=== PATIENT | female | born 1970 | race American Indian/Alaskan Native ===

== ENCOUNTER 2017-05-16 19:41 | Inpatient (IN) | payer SELFPAY ==
[2017-05-16] MEDS ORDERED: ASPIRIN PO ONE (20:01)
[2017-05-16 20:37] LABS: Basophils # (Auto) 0.1 K/mm3 (0.0-0.1); Basophils % (Auto) 0.9 % (0.0-1.8); Eosinophils # (Auto) 0.1 K/mm3 (0.0-0.4); Eosinophils % (Auto) 2.2 % (0.0-4.3); Hematocrit 43.5 % (30.3-42.9); Hemoglobin 13.9 gm/dl (10.1-14.3); Lymphocytes # (Auto) 2.8 K/mm3 (1.2-5.4); Lymphocytes % (Auto) 47.1 % (13.4-35.0); Mean Corpuscular HGB Conc 32 % (30-34); Mean Corpuscular Hemoglobin 28 pg (28-32); Mean Corpuscular Volume 88 fl (79-97); Monocytes # (Auto) 0.4 K/mm3 (0.0-0.8); Platelet Count 306 K/mm3 (140-440); Red Blood Count 4.97 M/mm3 (3.65-5.03); Red Cell Distribution Width 15.3 % (13.2-15.2)
[2017-05-16 20:53] LABS: BUN/Creatinine Ratio 10; Blood Urea Nitrogen 6 mg/dL (7-17); Hemolysis Index 5
[2017-05-16] MEDS ORDERED: NITROSTAT SL ONE (23:50)
--- NOTE | 2017-05-16 23:50 | Emergency Department Report ---
ED Chest Pain HPI - General Chief Complaint: Chest Pain Stated Complaint: CHEST PAIN Time Seen by Provider: 05/16/17 23:41 Source: patient Mode of arrival: Ambulatory Limitations: No Limitations - History of Present Illness Initial Comments: Patient is 46 years old female history of hypertension, HIV, coronary artery disease. Patient stated that she had coronary stents in 2015 at [facility]. Patient presented with left sided chest pain started this evening. Patient described her pain as squeezing radiated to the left arm. Patient stated also she was dealing with cough and upper respiratory infection for the last 2 weeks. MD Complaint: chest pain -: Sudden, This evening Pain Location: left chest Pain Radiation: LUE Quality: squeezing - Related Data Previous Rx's Medication Instructions Recorded Last Taken Type Atenolol [Tenormin] 50 mg PO DAILY #60 tab 12/07/15 Unknown Rx Clindamycin [Clindamycin CAP] 300 mg PO Q8H #14 cap 12/07/15 Unknown Rx Hydrochlorothiazide [HCTZ] 25 mg PO QDAY #30 tablet 12/13/15 Unknown Rx Allergies Allergy/AdvReac Type Severity Reaction Status Date / Time No Known Allergies Allergy Verified 12/07/15 13:32 Heart Score - HEART Score History: Moderately suspicious EKG: Non-specific Age: 45-65 Risk factors: > 3 risk factors or hx of atherosclerotic disease Troponin: < normal limit HEART Score: 5 - Critical Actions Critical Actions: 4-6 pts:12-16.6% risk of adverse cardiac event. Should be admitted ED Review of Systems ROS: Stated complaint: CHEST PAIN Other details as noted in HPI Comment: All other systems reviewed and negative Constitutional: denies: chills, fever Respiratory: cough. denies: orthopnea, shortness of breath, SOB with exertion, wheezing Cardiovascular: chest pain. denies: palpitations, dyspnea on exertion Gastrointestinal: denies: abdominal pain, nausea, vomiting, diarrhea, constipation, hematemesis Neurological: denies: headache, weakness, numbness, paresthesias ED Past Medical Hx - Past Medical History Hx Hypertension: Yes Additional medical history: HIV+,pad - Surgical History Additional Surgical History: . CARDIAC STENT 03/2016 - Social History Smoking Status: Unknown if ever smoked Substance Use Type: None - Medications Home Medications: Home Medications Medication Instructions Recorded Confirmed Last Taken Type Atenolol [Tenormin] 50 mg PO DAILY #60 tab 12/07/15 Unknown Rx Clindamycin [Clindamycin CAP] 300 mg PO Q8H #14 cap 12/07/15 Unknown Rx Hydrochlorothiazide [HCTZ] 25 mg PO QDAY #30 tablet 12/13/15 Unknown Rx ED Physical Exam - General Limitations: No Limitations General appearance: alert, in no apparent distress - Head Head exam: Present: atraumatic, normocephalic, normal inspection - Eye Eye exam: Present: normal appearance, PERRL - ENT ENT exam: Present: normal exam, normal orophraynx, mucous membranes moist - Respiratory Respiratory exam: Present: normal lung sounds bilaterally. Absent: respiratory distress, wheezes, rales, rhonchi, stridor, chest wall tenderness, accessory muscle use, decreased breath sounds, prolonged expiratory - Cardiovascular Cardiovascular Exam: Present: regular rate, normal rhythm, normal heart sounds - GI/Abdominal GI/Abdominal exam: Present: soft, normal bowel sounds. Absent: distended, tenderness, guarding, rebound, rigid, organomegaly, mass, bruit, pulsatile mass - Extremities Exam Extremities exam: Present: normal inspection, full ROM, normal capillary refill. Absent: tenderness, pedal edema, joint swelling, calf tenderness - Back Exam Back exam: Present: normal inspection, full ROM. Absent: tenderness, CVA tenderness (R), CVA tenderness (L), muscle spasm, paraspinal tenderness, vertebral tenderness - Neurological Exam Neurological exam: Present: alert, oriented X3, CN II-XII intact, normal gait - Skin Skin exam: Present: warm, intact, normal color. Absent: cyanosis ED Course Vital Signs 05/16/17 05/16/17 05/16/17 19:53 23:16 23:58 Temperature 98.3 F 98.8 F Pulse Rate 84 77 74 Respiratory 18 21 Rate Blood Pressure 226/111 206/93 Blood Pressure 199/104 [Left] O2 Sat by Pulse 100 98 Oximetry ED Medical Decision Making - Lab Data Result diagrams: 05/16/17 20:00 05/16/17 20:00 - EKG Data -: EKG Interpreted by Pr EKG shows normal: sinus rhythm Rate: normal - EKG Data Interpretation: no acute changes - Radiology Data Radiology results: report reviewed Referring Physician: ANDREINA ALMEIDA Patient Name: MICHELINE GEE Date of : 1970 Sex: Female Report Date: 2017-05-16 Report Status: Finalized Findings [facility] [address] [place] [address] XRay Report Signed Patient: MICHELINE GEE MR#: [id number] : 1970 Acct:[id number] Age/Sex: 46 / F ADM Date: 05/16/17 Loc: ED Attending Dr: Ordering Physician: ANDREINA ALMEIDA Date of Service: 05/16/17 Procedure(s): XR chest 1V ap Accession Number(s): [id number] cc: ANDREINA ALMEIDA Fluoro Time In Minutes: FINAL REPORT EXAM: XR CHEST 1V AP HISTORY: chest pain TECHNIQUE: A portable upright view of the chest was obtained. FINDINGS: The heart size and mediastinum appear normal. The lungs are clear. Pleural fluid is not seen. There are EKG leads overlying the chest wall. The bones and soft tissues do not show any acute changes. IMPRESSION: No active chest disease. Transcribed By: RB Dictated By: ALISON OSUNA MD Electronically Authenticated By: ALISON OSUNA MD Signed Date/Time: 05/16/172020 DD/ 20 TD/TT: 05/16/172020 - Medical Decision Making Discussed with Dr. Christy Groves, I presented the patient to her, she agreed to admit the patient to her service. Critical care attestation.: If time is entered above; I have spent that time in minutes in the direct care of this critically ill patient, excluding procedure time. ED Disposition Clinical Impression: Chest pain Disposition: -09 OP ADMIT IP TO THIS HOSP Is pt being admited?: Yes Condition: Stable Instructions: Chest Pain (ED)
--- NOTE | 2017-05-17 00:24 | XRay Report ---
FINAL REPORT EXAM: XR CHEST 1V AP HISTORY: chest pain TECHNIQUE: A portable upright view of the chest was obtained. FINDINGS: The heart size and mediastinum appear normal. The lungs are clear. Pleural fluid is not seen. There are EKG leads overlying the chest wall. The bones and soft tissues do not show any acute changes. IMPRESSION: No active chest disease.
[2017-05-17] MEDS ORDERED: DULCOLAX PR PRN (02:04)
[2017-05-17] MEDS ORDERED: MORPHINE IV PRN ×2 (02:04→03:20)
[2017-05-17] MEDS ORDERED: MILK OF MAGNESIA PO PRN (02:04)
[2017-05-17] MEDS ORDERED: TYLENOL PO PRN (02:04)
[2017-05-17] MEDS ORDERED: ZOFRAN IV PRN (02:04)
[2017-05-17 02:09] LABS: Bilirubin,Urine NEG (Negative); Blood,Urine MOD (Negative); Color,Urine Yellow (Yellow); Mucus,Urine FEW /HPF; Nitrite,Urine NEG (Negative); Protein,Urine <15 mg/dL mg/dL (Negative); WBC,Urine < 1.0 /HPF (0.0-6.0)
[2017-05-17] MEDS ORDERED: APRESOLINE IV ONE (02:26)
--- NOTE | 2017-05-17 03:20 | History and Physical Report ---
History of Present Illness Date of examination: 05/17/17 Date of admission: 05/17/17 02:04 History of present illness: 46-year-old woman with a history of HIV, unknown CD4 count, peripheral vascular disease, hypertension, coronary artery disease can't emergency room with complaints of chest pain that started yesterday. She describes the pain as sharp, intermittent in nature, lasting less than 5 minutes, intensity 5/10, radiating to the back and she can't identify exacerbating factors, relieved with pain medication given in the emergency room. A medicine nausea, no vomiting, shortness pain, diaphoresis or palpitation. Her stent was placed in 2016, she has not had any stress test after Review Of Systems: Constitutional: no weight loss Ears, eyes, nose, mouth and throat: no nasal congestion, no nasal discharge, no sinus pressure, blurry vision, diplopia Neck: No neck pain or rigidity. Cardiovascular: + chest pain, NO palpitations Respiratory: No shortness of breath, cough Gastrointestinal: No abdominal pain, hematochezia Genitourinary : no dysuria, frequency , hematuria Musculoskeletal: no muscle ache Integumentary: no rash, no pruritis Neurological: no parathesias, focal weakness Endocrine: no cold or heat intolerance, no polyuria or polydipsia Hematologic/Lymphatic: no easy bruising, no easy bleeding, no gland swelling Allergic/Immunologic: no urticaria, no angioedema. PAST MEDICAL HISTORY:HIV, unknown CD4 count, peripheral vascular disease, hypertension, coronary artery disease PAST SURGICAL HISTORY: None FAMILY HISTORY: Hypertension, diabetes SOCIAL HISTORY: Smokes half pack a day, no alcohol or drugs Medications and Allergies Allergies Allergy/AdvReac Type Severity Reaction Status Date / Time No Known Allergies Allergy Verified 12/07/15 13:32 Home Medications Medication Instructions Recorded Confirmed Last Taken Type Aspirin [Aspirin BABY CHEW TAB] 81 mg PO QDAY #30 tab.chew 05/18/17 Unknown Rx Atenolol [Tenormin] 50 mg PO DAILY #60 tab 05/18/17 Unknown Rx AtorvaSTATin [Lipitor] 40 mg PO QHS #30 tablet 05/18/17 Unknown Rx Clopidogrel [Plavix] 75 mg PO QDAY #30 tablet 05/18/17 Unknown Rx HYDROcodone/APAP 5-325 [[place] 1 each PO Q6HR PRN #12 tablet 05/18/17 Unknown Rx 5/325] amLODIPine [Norvasc] 10 mg PO QDAY #30 tablet 05/18/17 Unknown Rx Active Meds: Active Medications Acetaminophen (Tylenol) 650 mg PO Q4H PRN PRN Reason: Pain MILD(1-3)/Fever >100.5/BASS Bisacodyl (Dulcolax) 10 mg [place] QDAY PRN PRN Reason: Constipation unrelieved by MOM Enoxaparin Sodium (Lovenox) 40 mg SUB-Q QDAY SAGE Magnesium Hydroxide (Milk Of Magnesia) 30 ml PO Q4H PRN PRN Reason: Constipation Morphine Sulfate (Morphine) 2 mg IV Q4H PRN PRN Reason: Pain, Moderate (4-6) Ondansetron HCl (Zofran) 4 mg IV Q8H PRN PRN Reason: N/V unrelieved by Reglan Exam - Physical Exam Narrative exam: Gen. appearance: Patient lying in bed in no acute distress HEENT: Normocephalic/atraumatic, pupils equal round reactive to light, extra occular movement intact, no scleral icterus, no JVD or thyromegaly or nodule, neck is supple, mucous membrane moist, no erythema or exudate Heart: S1-S2, regular rate and rhythm Lungs: Clear to auscultation bilateral breathing comfortable Abdomen: Positive bowel sounds, nontender, nondistended, no organomegaly Extremities: No edema, cyanosis, clubbing Neuro:: Oriented 3 , cranial nerves II-12 intact, speech, motor intact Skin: No rash, nodules, warm dry - Constitutional Vitals: Temp Pulse Resp BP Pulse Ox 98.8 F 74 17 177/91 97 05/16/17 23:16 05/17/17 02:27 05/17/17 02:00 05/17/17 02:27 05/17/17 02:00 Results - Labs CBC & Chem 7: 05/18/17 06:45 05/18/17 06:45 Labs: Abnormal lab results 05/16/17 05/16/17 Range/Units 20:00 20:00 Hct 43.5 H (30.3-42.9) % RDW 15.3 H (13.2-15.2) % Lymph % (Auto) 47.1 H (13.4-35.0) % BUN 6 L (7-17) mg/dL Creatinine 0.6 L (0.7-1.2) mg/dL Glucose 155 H (65-100) mg/dL - Imaging and Cardiology EKG: image reviewed Chest x-ray: image reviewed Assessment and Plan Assessment Unstable angina Coronary artery disease Hypertension HIV Peripheral vascular disease Plan Admit to medicine Check cardiac enzymes, stress test Continue appropriate outpatient medications Start aspirin, IV morphine, continue cardiac medication DVT prophylaxis
[2017-05-17 03:24] LABS: Creatine Kinase MB 1.5 ng/mL (0.0-4.0)
[2017-05-17] MEDS ORDERED: TENORMIN PO SCH (10:00)
[2017-05-17] MEDS ORDERED: LEXISCAN IV ONE (10:28)
[2017-05-17] MEDS ORDERED: TENORMIN ONE (11:25)
[2017-05-17] MEDS: BABY ASPIRIN PO SCH (11:31)
[2017-05-17] MEDS: LOVENOX SUB-Q SCH (11:31)
[2017-05-17 12:16] LABS: Creatine Kinase MB 1.6 ng/mL (0.0-4.0)
--- NOTE | 2017-05-17 14:35 | Consultation ---
History of Present Illness Consult date: 05/17/17 Consult reason: chest pain History of present illness: 46 year old female presenting with retrosternal chest pain lasting 2-3 min in duration and relieved with SL NTG. Patient has a history of CAD s/p PCI Mar 2016 at [facility]. Records are not available. Stress test today revealing reversal of the septal to lateral intensity ratio on stress imaging when compared to rest raising suspicion for Cx ischemia Past History Past Medical History: CAD, hypertension Past Surgical History: PTCA Social history: no significant social history Family history: no significant family history Medications and Allergies Allergies Allergy/AdvReac Type Severity Reaction Status Date / Time No Known Allergies Allergy Verified 12/07/15 13:32 Home Medications Medication Instructions Recorded Confirmed Last Taken Type Atenolol [Tenormin] 50 mg PO DAILY #60 tab 12/07/15 05/17/17 Unknown Rx Aspirin [Aspirin BABY CHEW TAB] 81 mg PO QDAY 05/17/17 05/17/17 Unknown History Active Meds: Active Medications Acetaminophen (Tylenol) 650 mg PO Q4H PRN PRN Reason: Pain MILD(1-3)/Fever >100.5/BASS Aspirin (Baby Aspirin) 81 mg PO QDAY [facility] Last Admin: 05/17/17 11:31 Dose: 81 mg Atenolol (Tenormin) 50 mg PO DAILY [facility] Last Admin: 05/17/17 11:31 Dose: 50 mg Bisacodyl (Dulcolax) 10 mg [place] QDAY PRN PRN Reason: Constipation unrelieved by MOM Enoxaparin Sodium (Lovenox) 40 mg SUB-Q QDAY [facility] Last Admin: 05/17/17 11:31 Dose: 40 mg Magnesium Hydroxide (Milk Of Magnesia) 30 ml PO Q4H PRN PRN Reason: Constipation Morphine Sulfate (Morphine) 2 mg IV Q4H PRN PRN Reason: Pain, Moderate (4-6) Ondansetron HCl (Zofran) 4 mg IV Q8H PRN PRN Reason: N/V unrelieved by Reglan Review of Systems All systems: negative Physical Examination Vital Signs Temp Pulse Resp BP Pulse Ox 98.3 F 84 18 226/111 100 05/16/17 19:53 05/16/17 19:53 05/16/17 19:53 05/16/17 19:53 05/16/17 19:53 General appearance: no acute distress HEENT: Positive: PERRL Neck: Positive: neck supple Cardiac: Positive: Reg Rate and Rhythm Lungs: Positive: Normal Exam Abdomen: Positive: Soft Results 05/16/17 20:00 05/16/17 20:00 Cardiac Enzymes 05/17/17 05/17/17 Range/Units 02:28 06:04 CK-MB (CK-2) 1.5 1.6 (0.0-4.0) ng/mL CBC 05/16/17 Range/Units 20:00 WBC 5.9 (4.5-11.0) K/mm3 RBC 4.97 (3.65-5.03) M/mm3 Hgb 13.9 (10.1-14.3) gm/dl Hct 43.5 H (30.3-42.9) % Plt Count 306 (140-440) K/mm3 Lymph # 2.8 (1.2-5.4) K/mm3 Powell # 0.4 (0.0-0.8) K/mm3 Eos # 0.1 (0.0-0.4) K/mm3 Baso # 0.1 (0.0-0.1) K/mm3 Comprehensive Metabolic Panel 05/16/17 Range/Units 20:00 Sodium 142 (137-145) mmol/L Potassium 4.2 (3.6-5.0) mmol/L Chloride 101.3 (98-107) mmol/L Carbon Dioxide 27 (22-30) mmol/L BUN 6 L (7-17) mg/dL Creatinine 0.6 L (0.7-1.2) mg/dL Glucose 155 H (65-100) mg/dL Calcium 9.0 (8.4-10.2) mg/dL - EKG Interpretation EKG: sinus rhythm EKG interpretations - Telemetry EKG Rhythm: Sinus Rhythm Assessment and Plan Chest pain relieved with SL NTG CAD s/p PCI Mar 2016 at [facility] Abnormal ECG Abnormal MPI showing stress induced reversal of the lateral to septal count ratios - raising suspicion for Cx ischemia Uncontrolled systemic hypertension Recommendations: Proceed with coronary angiogaphy in am (discussed with patient) Add amlodipine Change atenolol to carvedilol
[2017-05-17] MEDS ORDERED: NACL 0.9% 500 ML 500 ML IV SCH (15:00)
[2017-05-17] MEDS: NORVASC PO SCH (16:47)
--- NOTE | 2017-05-17 17:58 | Event Note ---
Date: 05/17/17 Patient was seen and evaluated this morning, patient was admitted for chest pain , patient stress test show reversible defect, cardiology consulted and will do the echo tomorrow morning. She and I agreed with the plan.
[2017-05-17] MEDS: APRESOLINE IV PRN (21:17)
[2017-05-18] MEDS: COREG PO SCH ×2 (00:29→10:36)
[2017-05-18] MEDS: APRESOLINE IV PRN ×2 (00:31→17:45)
--- NOTE | 2017-05-18 01:49 | Treadmill Report ---
INDICATION: Chest pain. ORDERING PHYSICIAN: Dr. Cesar Weinberg. FINDINGS: There is evidence of a small mildly reversible apical and mid anterior wall defect likely secondary to breast attenuation artifact. This defect is most prominent on the stress images. There is also evidence of a reverse lateral to septal wall ratio intensity noted on the stress imaging concerning for possible ischemia in the lateral wall and the circumflex distribution. Gated imaging shows normal wall motion with an ejection fraction measured at 58%. CONCLUSION: 1. Abnormal perfusion scan. 2. Mildly reversible anterior wall defect likely due to overlying breast attenuation artifact. 3. Reversal of the lateral to septal ratio intensity noted on the stress imaging raising suspicion for possible lateral wall reversibility and therefore circumflex ischemia. Clinical correlation is recommended. JOB# [id number] MATILDA/DEJAN
[2017-05-18 07:13] LABS: Basophils # (Auto) 0.1 K/mm3 (0.0-0.1); Eosinophils # (Auto) 0.1 K/mm3 (0.0-0.4); Eosinophils % (Auto) 1.6 % (0.0-4.3); Hematocrit 40.1 % (30.3-42.9); Hemoglobin 13.6 gm/dl (10.1-14.3); Lymphocytes # (Auto) 2.4 K/mm3 (1.2-5.4); Lymphocytes % (Auto) 35.2 % (13.4-35.0); Mean Corpuscular HGB Conc 34 % (30-34); Mean Corpuscular Hemoglobin 29 pg (28-32); Mean Corpuscular Volume 85 fl (79-97); Monocytes # (Auto) 0.5 K/mm3 (0.0-0.8); Monocytes % (Auto) 7.3 % (0.0-7.3); Platelet Count 262 K/mm3 (140-440); Red Cell Distribution Width 15.2 % (13.2-15.2)
[2017-05-18 07:29] LABS: INR 1.05 (0.87-1.13)
[2017-05-18 07:30] LABS: Partial Thromboplastin Time 29.6 Sec. (24.2-36.6)
[2017-05-18 07:33] LABS: BUN/Creatinine Ratio 20; Blood Urea Nitrogen 12 mg/dL (7-17); Calcium 8.8 mg/dL (8.4-10.2); Hemolysis Index 72
[2017-05-18] MEDS ORDERED: HABITROL TD SCH (10:00)
[2017-05-18] MEDS: LOVENOX SUB-Q SCH (10:36)
[2017-05-18] MEDS: BABY ASPIRIN PO SCH (10:36)
[2017-05-18] MEDS: NORVASC PO SCH (10:36)
[2017-05-18] MEDS ORDERED: HEPARIN/NS 5000 UNIT/500ML(CATH LAB) 1,000 ML IR ONE (13:58)
[2017-05-18] MEDS ORDERED: XYLOCAINE 2% INFILTRATI ONE (13:59)
[2017-05-18] MEDS ORDERED: CALAN ONE (13:59)
[2017-05-18] MEDS ORDERED: NITROGLYCERIN SYRINGE 3 ML ONE (13:59)
[2017-05-18] MEDS ORDERED: NACL 0.9% 500 ML 500 ML ONE (13:59)
[2017-05-18] MEDS ORDERED: HEPARIN 10,000 UNITS/10 ML ONE (14:00)
[2017-05-18] MEDS: SUBLIMAZE ONE ×2 (14:10→14:30)
[2017-05-18] MEDS: VERSED ONE ×3 (14:11→14:34)
[2017-05-18] MEDS: XYLOCAINE 2% INFILTRATI ONE ×2 (14:11→14:31)
--- NOTE | 2017-05-18 15:01 | Event Note ---
Date: 05/18/17 Cardiac cath completed via R radial approach, no complications. Findings: 1. Widely patent RCA stent. 2. Otherwise negative. 3. EF 65%. Medical therapy and RF modification. OK for cardiac discharge.
--- NOTE | 2017-05-18 15:08 | Cardiac Catherization Report ---
CARDIAC CATHETERIZATION REASON FOR PROCEDURE: Chest pain. The patient is a 46-year-old woman with a history of coronary artery disease and a prior coronary stenting of the right coronary artery done a little over a year ago. She was admitted with chest pain and was considered to have unstable angina. A cardiac catheterization was recommended. DESCRIPTION OF PROCEDURE: The patient was prepped and draped in a sterile fashion after informed consent. The right radial cath site was prepped and draped after a negative Ray's test. The right radial artery was entered using Seldinger technique followed by placement of a 6-Malay hydrophilic sheath. Routine radial cocktail was administered via the sheath. Selective left and right coronary angiography was performed using a 3.5 left Tye and a #4 right Tye catheters. Pigtail catheter was used for left ventricle angiography. The catheters were removed, sheath removed, and hemostasis achieved using manual compression. The patient was returned to the postprocedure unit in stable condition. There were no complications. FINDINGS: HEMODYNAMICS: Left ventricle end diastolic pressure was 20, following coronary angiography. Ascending aortic pressure was 178/75. There was no significant pressure gradient on pullback across the aortic valve. CORONARY ANGIOGRAPHY: There were mild irregularities of the left main coronary artery. There was a 40-50% ostial stenosis of a medium sized proximal diagonal branch of the LAD. Otherwise, the LAD and its diagonal branches contained mild diffuse irregularities. A medium size ramus intermedius artery contained mild diffuse irregularities. The circumflex artery was a large system that contained diffuse mild atherosclerosis. No significant obstructive lesions were noted within the left coronary system. The right coronary artery was dominant. This vessel contained a stent in its proximal segment. The stented segment was widely patent, no significant restenosis. Otherwise, there was diffuse mild atherosclerosis of the remainder of the mid and distal segments of the right coronary artery. Left ventricular systolic function was normal, ejection fraction 60-65%. CONCLUSION: 1. Widely patent right coronary artery stent. 2. Otherwise, mild atherosclerosis with no significant residual obstructive lesions. 3. Normal left ventricular systolic function, ejection fraction 60-65%. RECOMMENDATION: Risk factor modification, medical therapy. [facility]# [id number] CA/NTS
[2017-05-18] MEDS ORDERED: PLAVIX PO SCH (16:00)
[2017-05-18] MEDS ORDERED: NACL 0.9% 1000 ML 1,000 ML IV SCH (16:00)
--- NOTE | 2017-05-18 16:03 | Discharge Summary ---
Providers - Providers Date of Admission: 05/17/17 02:04 Attending physician: DAVIE FREEMAN MD 05/18/17 15:01 Consult to Cardiac Rehabilitation [CONS] Routine Reason For Exam: Cardiac Rehab Evaluation Primary care physician: EDEL ARIAS Hospitalization Reason for admission: chest pain, abnormal stress test Condition: Stable Pertinent studies: Cardiac stress test, abnormal cardiac stress test. Left heart cath clean coronaries Hospital course: 46-year-old woman with a history of HIV, unknown CD4 count, peripheral vascular disease, hypertension, coronary artery disease came to emergency room with complaints of chest pain that started a day before presentation. She described the pain as sharp, intermittent in nature, lasting less than 5 minutes, intensity 5/10, radiating to the back and she can't identify exacerbating factors, relieved with pain medication given in the emergency room. Patient said had cardiac stent at another hospital a year ago. Patient was admitted to the floor and cardiac stress test was done and the results were abnormal. Cardiology consulted and did cardiac cath which showed clean coronaries. Patient's chest pain subsided. Patient was advised to continue Plavix, aspirin, statin and she was given appropriate scripts. Patient is hemodynamically stable at the time of discharge. Patient's questions and concerns were addressed at the bedside. Disposition: DC-01 TO HOME OR SELFCARE Time spent for discharge: 31 minutes - Discharge Diagnoses (1) Chest pain Status: Acute (2) Abnormal cardiovascular stress test Status: Acute (3) History of heart artery stent Status: Chronic Core Measure Documentation - Palliative Care Palliative Care/ Comfort Measures: Not Applicable - Core Measures Any of the following diagnoses?: none Exam - Physical Exam Narrative exam: Not in cardiopulmonary distress. The patient appeared well nourished and normally developed. Vital signs as documented. Head exam is unremarkable. No scleral icterus . Neck is without jugular venous distension, thyromegaly, or carotid bruits. Lungs are clear to auscultation. Cardiac exam reveals regular rate and Rhythm. First and second heart sounds normal. No murmurs, rubs or gallops. Abdominal exam reveals normal bowel sounds, no masses, no organomegaly and no aortic enlargement. Extremities are nonedematous and both femoral and pedal pulses are normal. HOME ENERGY INSPECTOR: Alert and oriented 3. No focal weakness. - Constitutional Vitals: Temp Pulse Resp BP Pulse Ox 97.9 F 69 20 174/83 100 05/18/17 10:52 05/18/17 08:00 05/18/17 05:06 05/18/17 08:00 05/18/17 05:06 Plan Activity: no restrictions Weight Bearing Status: Full Weight Bearing Diet: low cholesterol, low salt Follow up with: EDEL ARIAS MD [Primary Care Provider] - 7 Days Forms: Post Arteriogram Instruct Prescriptions: AtorvaSTATin [Lipitor] 40 mg PO QHS #30 tablet amLODIPine [Norvasc] 10 mg PO QDAY #30 tablet Aspirin [Aspirin BABY CHEW TAB] 81 mg PO QDAY #30 tab.chew Atenolol [Tenormin] 50 mg PO DAILY #60 tab Clopidogrel [Plavix] 75 mg PO QDAY #30 tablet HYDROcodone/APAP 5-325 [[place] 5/325] 1 each PO Q6HR PRN #12 tablet PRN Reason: Pain
[2017-05-18 18:39] VITALS: BP 148/72
== END 2017-05-18 20:50 | disposition home or self-care (01) | DRG 287 ==
LOC: ED 19:41 → 4A 05-17 02:04
PROVIDERS: ADMIT Internal Medicine; ATTEND Internal Medicine
PROC: 4A023N7 Measurement of Cardiac Sampling and Pressure, Left Heart, Percutaneous Approach (ICD-10-PCS; principal; 2017-05-18)
PROC: B2151ZZ Fluoroscopy of Left Heart using Low Osmolar Contrast (ICD-10-PCS; 2017-05-18)
PROC: B2111ZZ Fluoroscopy of Multiple Coronary Arteries using Low Osmolar Contrast (ICD-10-PCS; 2017-05-18)
DX: R07.89 Other chest pain (principal); I10 Essential (primary) hypertension; I25.10 Atherosclerotic heart disease of native coronary artery without angina pectoris; Z83.3 Family history of diabetes mellitus; Z82.49 Family history of ischemic heart disease and other diseases of the circulatory system; I73.9 Peripheral vascular disease, unspecified
CPT/HCPCS: 36415; 71045; 78452; 80048; 81001; 82550; 82553; 82962; 84484; 85025; 85610; 85730; 93005; 93010; 93017; 93458; A9270-GY; A9502; C1894; J0360; J1644; J1650; J2250; J2270; J2785; J3010; J7040; Q9967